=== PATIENT | male | born 1960 | race Caucasian/White ===

== ENCOUNTER → 2025-06-16 | Emergency (ER) | payer BC ==
[~2025-06-16] VITALS: Ht 182.9 cm; Wt 117.9 kg
[~2025-06-16] MED LIST: AZITHROMYCIN500 MG PO; BENZONATATE 200 MG CAPSULE PO ONE; BENZONATATE200 M1 PO; CEFTRIAXONE SODIUM 1,000 MG VIAL IM ONE; LEVALBUTER0.63 MG/3 IH; LEVALBUTEROL HCL 1.25 MG/3 ML SOLUTION IH ONE; MEDROLPACK PO; METHYLPREDNISOLONE SOD SUCC 40 MG VIAL IM ONE; NORVASC5 MG; PEPCID AC20 MG PO; SINGULAIR10 MG PO; ZESTRIL5 MG
[2025-06-16 22:00] LABS: BASO % 0.7 % (0.1-1.2); EOS # 0.10 (0.04-0.54); EOS % 1.8 % (0.7-7.0); LYMPH # 0.84 (1.18-3.74); LYMPH % 14.7 % (19.3-53.1); MEAN PLATELET VOLUME 8.60 fl (9.4-12.4); MONO # 0.59 (0.24-0.82); MONO % 10.4 % (4.7-12.5); NEUT # 4.11 (1.56-6.13); NEUT % 72.0 % (34.0-71.1); RED CELL DISTRIBUTION WIDTH 12.9 % (11.6-14.4)
[2025-06-16 22:41] LABS: COVID-19 AG NEGATIVE (NEGATIVE)
== END | disposition home or self-care (01) ==
LOC: ER 16:59
PROVIDERS: General Practice
DX: R05.8 Other specified cough (principal); R50.9 Fever, unspecified; I10 Essential (primary) hypertension; Z20.822 Contact with and (suspected) exposure to COVID-19